=== PATIENT | female | born 1980 | race Caucasian/White ===

== ENCOUNTER 2016-06-29 18:49 | Emergency (ER) | payer OTHER ==
[2016-06-29 19:00] VITALS: BP 147/96; PULSE 83; RESP 20; TEMP 97.7; O2SAT 100
[2016-06-29] MEDS ORDERED: Sodium Chloride 0.9% 1,000 ML IV STA (19:17)
--- NOTE | 2016-06-29 19:29 | ED PDOC ---
HPI: Headache Time Seen by Provider: 06/29/16 19:05 Chief Complaint (Nursing): Headache Chief Complaint (Provider): Headache History Per: Patient History/Exam Limitations: no limitations Onset/Duration Of Symptoms: Days (Years) Current Symptoms Are (Timing): Still Present Additional Complaint(s): Pt. gets headaches frequently for years. Has been seen at all the ERs in the area multiple times per pt. States she has been on some medicine that works, but ran out 3 months ago. Has been more pain for 1 month. Pain currently is same as her previous headache. States is a migraine on the left side. Not worst pain in her life. No neck pain, numbness, tingles, weakness, dizziness, fever, dyspnea, chest pain, back pain. Lights bother her. When headache comes it goes down her left arm. When headache is gone, arm pain is gone. Past Medical History Reviewed: Nursing Documentation, Vital Signs Vital Signs: Last Vital Signs Temp 97.7 F 06/29/16 18:58 Pulse 83 06/29/16 18:58 Resp 20 06/29/16 18:58 BP 147/96 H 06/29/16 18:58 Pulse Ox 100 06/29/16 18:58 - Medical History PMH: Migraine - Surgical History Surgical History: No Surg Hx - Family History Family History: States: Unknown Family Hx - Living Arrangements Living Arrangements: With Family - Social History Alcohol: None Drugs: Denies - Home Medications Home Medications: Ambulatory Orders Medication Instructions Recorded Acetaminophen with Codeine 1 tab PO Q8H #10 tab 07/20/14 [Tylenol with Codeine No. 3 300 mg-30 mg] Ibuprofen [Motrin] 600 mg PO TID 7 Days 06/29/16 - Allergies Allergies/Adverse Reactions: Allergies Allergy/AdvReac Type Severity Reaction Status Date / Time aspirin Allergy RASH Verified 06/29/16 18:58 Review of Systems ROS Statement: Except As Marked, All Systems Reviewed And Found Negative Musculoskeletal: Positive for: Arm Pain Neurological: Positive for: Headache Physical Exam - Reviewed Nursing Documentation Reviewed: Yes Vital Signs Reviewed: Yes - Physical Exam Appears: Positive for: Non-toxic, No Acute Distress Head Exam: Positive for: ATRAUMATIC, NORMAL INSPECTION, NORMOCEPHALIC Skin: Positive for: Normal Color, Warm, DRY Eye Exam: Positive for: EOMI, Normal appearance, PERRL ENT: Positive for: Normal ENT Inspection Neck: Positive for: Normal, Painless ROM Cardiovascular/Chest: Positive for: Regular Rate, Rhythm Respiratory: Positive for: CNT, Normal Breath Sounds Gastrointestinal/Abdominal: Positive for: Normal Exam, Bowel Sounds, Soft. Negative for: Tenderness Back: Positive for: Normal Inspection. Negative for: L CVA Tenderness, R CVA Tenderness Extremity: Positive for: Normal ROM. Negative for: Tenderness, Pedal Edema Neurologic/Psych: Positive for: Alert, gis specialist II-XII, Oriented. Negative for: Motor/Sensory Deficits, Aphasia, Facial Droop - ECG O2 Sat by Pulse Oximetry: 100 Pulse Ox Interpretation: Normal - Progress ED Course And Treament: 927: Stable. AAOx3. Pain free. Tolerated Po. Fu with pcp. Disposition - Clinical Impression Clinical Impression: Chronic headache disorder - Patient ED Disposition Is Patient to be Admitted: No Counseled Patient/Family Regarding: Diagnosis, Need For Followup, Rx Given - Disposition Referrals: [facility] [Outside] - 06/30/16 Disposition: Routine/Home Disposition Time: 21:28 Condition: STABLE Additional Instructions: Return if not better in 3 days. Prescriptions: Ibuprofen [Motrin] 600 mg PO TID 7 Days Instructions: General Headache (ED) Print Language: SLOVENIAN
== END 2016-06-29 21:45 | disposition home or self-care (01) ==
LOC: H.ER 18:49
DX: R51 Headache (principal); G89.29 Other chronic pain

== ENCOUNTER 2016-07-03 01:56 | Emergency (ER) | payer OTHER ==
[2016-07-03 02:21] VITALS: BP 122/85; PULSE 53; RESP 16; TEMP 98; O2SAT 100
--- NOTE | 2016-07-03 02:26 | ED PDOC ---
HPI: Headache Time Seen by Provider: 07/03/16 02:07 Chief Complaint (Nursing): Headache Chief Complaint (Provider): Left sided headache x 5 days History Per: Patient History/Exam Limitations: no limitations Onset/Duration Of Symptoms: Days Current Symptoms Are (Timing): Still Present Severity: Moderate Pain Scale Rating Of: 7 Front/Back Head: 1 - Pain Associated Symptoms: Photophobia, Nausea. denies: Blurred Vision, Extremity Weakness Additional Complaint(s): Pt states she has had similar over the past few years and was taking a medication in the past but does not know the name. Pt states it went away for a day after given Reglan and IV fluids in ER 5 days ago. Past Medical History Reviewed: Historical Data, Nursing Documentation, Vital Signs Vital Signs: Last Vital Signs Temp 98.0 F 07/03/16 02:04 Pulse 53 L 07/03/16 02:04 Resp 16 07/03/16 02:04 BP 122/85 07/03/16 02:04 Pulse Ox 100 07/03/16 02:04 - Medical History PMH: Migraine - Surgical History Surgical History: No Surg Hx - Family History Family History: States: Unknown Family Hx - Living Arrangements Living Arrangements: With Family - Social History Current smoker - smoking cessation education provided: No Alcohol: Occasional Drugs: Denies - Home Medications Home Medications: Ambulatory Orders Medication Instructions Recorded Acetaminophen with Codeine 1 tab PO Q8H #10 tab 07/20/14 [Tylenol with Codeine No. 3 300 mg-30 mg] Ibuprofen [Motrin] 600 mg PO TID 7 Days 06/29/16 Acetaminophen/Butalbital/Caf 1 tab PO Q4H PRN #15 tab 07/03/16 [Fioricet] - Allergies Allergies/Adverse Reactions: Allergies Allergy/AdvReac Type Severity Reaction Status Date / Time aspirin Allergy RASH Verified 06/29/16 18:58 Review of Systems ROS Statement: Except As Marked, All Systems Reviewed And Found Negative Eyes: Positive for: Other (No change in vision, (+) photophobia ) Neurological: Positive for: Headache. Negative for: Weakness, Altered Mental Status Physical Exam - Reviewed Nursing Documentation Reviewed: Yes Vital Signs Reviewed: Yes - Physical Exam Appears: Positive for: Well, Non-toxic, No Acute Distress Head Exam: Positive for: ATRAUMATIC, NORMAL INSPECTION, NORMOCEPHALIC Skin: Positive for: Normal Color, Warm, DRY Eye Exam: Positive for: EOMI, Normal appearance, PERRL ENT: Positive for: Normal ENT Inspection Neck: Positive for: Normal, Painless ROM Cardiovascular/Chest: Positive for: Regular Rate, Rhythm Respiratory: Positive for: Normal Breath Sounds. Negative for: Accessory Muscle Use Back: Positive for: Normal Inspection Extremity: Positive for: Normal ROM. Negative for: Tenderness Neurologic/Psych: Positive for: Alert, radiochemical technician II-XII, Oriented, Mood/Affect, Cerebellar Tests, Gait. Negative for: Motor/Sensory Deficits, Aphasia, Facial Droop - ECG O2 Sat by Pulse Oximetry: 100 Medical Decision Making Medical Decision Making: After SC imitrex pt reports feeling hot and having difficulty breathing. IV benadryl and solumedrol given. 0450 - PT reports pain 8/10, reglan ordered. 0520 - Pt rpeorts pain 2/10 Disposition - Clinical Impression Clinical Impression: Migraine - Patient ED Disposition Is Patient to be Admitted: No - Disposition Referrals: Marco Rodriguez MD [Medical Doctor] - Disposition: Routine/Home Disposition Time: 05:15 Condition: GOOD Prescriptions: Acetaminophen/Butalbital/Caf [Fioricet] 1 tab PO Q4H PRN #15 tab PRN Reason: Headache Instructions: Migraine Headache (ED) Print Language: NEPALI
[2016-07-03] MEDS ORDERED: DiphenhydrAMINE 50 mg/ml Inj ONE (02:44)
[2016-07-03] MEDS ORDERED: Sodium Chloride 0.9% 1,000 ML IV STA (02:46)
[2016-07-03] MEDS ORDERED: DiphenhydrAMINE 50 mg/ml Inj IVP STA (02:53)
== END 2016-07-03 05:25 | disposition home or self-care (01) ==
LOC: H.ER 01:56
DX: G43.909 Migraine, unspecified, not intractable, without status migrainosus (principal); R11.0 Nausea

== ENCOUNTER 2016-11-15 09:09 | Emergency (ER) | payer SELFPAY ==
[2016-11-15 09:19] VITALS: BP 114/70; PULSE 61; O2SAT 98
[2016-11-15 09:20] VITALS: BMI 24.7
[2016-11-15 09:56] VITALS: RESP 18; TEMP 97
[2016-11-15] MEDS ORDERED: DiphenhydrAMINE 50 mg/ml Inj IVP STA (10:14)
[2016-11-15] MEDS ORDERED: Sodium Chloride 0.9% 1,000 ML IV STA (10:14)
--- NOTE | 2016-11-15 10:18 | ED PDOC ---
HPI: Headache Time Seen by Provider: 11/15/16 09:16 Chief Complaint (Nursing): Headache Chief Complaint (Provider): Headache History Per: Patient History/Exam Limitations: no limitations Onset/Duration Of Symptoms: Days (x3) Current Symptoms Are (Timing): Still Present Additional Complaint(s): Stephanie Yun is a 36 year old female presenting to the ED for an evaluation of a right sided headache typical of a usual migraine starting on Tuesday prior to arrival. The patient states she took Imitrex and Tramadol at home, without relief. She also reports associated vomiting, photophobia, and phonophobia. PMD: Marga Almaguer MD Past Medical History Reviewed: Historical Data, Nursing Documentation, Vital Signs Vital Signs: Last Vital Signs Temp 97.0 F L 11/15/16 09:28 Pulse 61 11/15/16 09:28 Resp 18 11/15/16 09:28 BP 114/70 11/15/16 09:28 Pulse Ox 98 11/15/16 09:28 - Medical History PMH: Migraine - Family History Family History: States: Unknown Family Hx - Social History Current smoker - smoking cessation education provided: No Ex-Smoker (has not smoked in the last 12 months): No Alcohol: None Drugs: Denies - Home Medications Home Medications: Ambulatory Orders Medication Instructions Recorded Acetaminophen with Codeine 1 tab PO Q8H #10 tab 07/20/14 [Tylenol with Codeine No. 3 300 mg-30 mg] Ibuprofen [Motrin] 600 mg PO TID 7 Days tab 06/29/16 Acetaminophen/Butalbital/Caf 1 tab PO Q4H PRN #15 tab 07/03/16 [Fioricet] - Allergies Allergies/Adverse Reactions: Allergies Allergy/AdvReac Type Severity Reaction Status Date / Time aspirin Allergy RASH Verified 06/29/16 18:58 Review of Systems ROS Statement: Except As Marked, All Systems Reviewed And Found Negative Eyes: Positive for: Other (photophobia) ENT: Positive for: Other (phonophobia) Gastrointestinal: Positive for: Vomiting Neurological: Positive for: Headache Physical Exam - Reviewed Nursing Documentation Reviewed: Yes Vital Signs Reviewed: Yes - Physical Exam Appears: Positive for: Non-toxic, No Acute Distress Head Exam: Positive for: ATRAUMATIC, NORMOCEPHALIC Skin: Positive for: Normal Color, Warm, Dry Eye Exam: Positive for: Normal appearance, EOMI, PERRL ENT: Positive for: Normal ENT Inspection Neck: Positive for: Normal Cardiovascular/Chest: Positive for: Regular Rate, Rhythm, Chest Non Tender Respiratory: Positive for: Normal Breath Sounds. Negative for: Respiratory Distress Gastrointestinal/Abdominal: Positive for: Normal Exam Back: Positive for: Normal Inspection Extremity: Positive for: Normal ROM Neurologic/Psych: Positive for: Alert, Oriented - ECG O2 Sat by Pulse Oximetry: 98 (RA) Pulse Ox Interpretation: Normal Medical Decision Making Medical Decision Making: Time: 09:16 Impression: Headache Plan: * CT Head w/o Contrast * Benadryl 25 mg IVP * NS 1,000 ml IV 1,000 mls/hr * Phenergan Inj 25 mg IV * Reevaluation Pt had a Head CT done on 07/20/14. Results of 07/20/[address]: Findings: No acute parenchymal, subarachnoid or extra-axial hemorrhage. No evidence of large acute infarct. No obvious parenchymal or extra-axial mass or collection seen on this noncontrast study. Ventricular and sulcal size are within the range of normal for this age. There are no acute calvarial fractures Visualized paranasal and mastoid air complexes are well-developed. Mild to moderate mucosal thickening within the ethmoid. There may also be some mild mucosal thickening along the upper maxillary antral regions. Minor mucosal thickening sphenoid sinus. Impression: : No acute intracranial hemorrhage Scribe Attestation: Documented by Deisy Luis, acting as a scribe for Tania Rodriguez MD. Provider Scribe Attestation: All medical record entries made by the Scribe were at my direction and personally dictated by me. I have reviewed the chart and agree that the record accurately reflects my personal performance of the history, physical exam, medical decision making, and the department course for this patient. I have also personally directed, reviewed, and agree with the discharge instructions and disposition. Disposition - Clinical Impression Clinical Impression: Migraine - Disposition Disposition: Routine/Home Disposition Time: 12:40 Condition: IMPROVED Additional Instructions: FOLLOW-UP WITH PMD WITHIN 2 DAYS FOR REEVALUATION. Instructions: Migraine Headache (ED) Forms: [facility] (German) Print Language: SENEGALESE
== END 2016-11-15 13:33 | disposition home or self-care (01) ==
LOC: H.ER 09:09
DX: G43.909 Migraine, unspecified, not intractable, without status migrainosus (principal)
CPT/HCPCS: 81025; 96361; 96374; 96375; 99285; J1200; J2550; J7040